=== PATIENT | female | born 1980 | race Caucasian/White ===

== ENCOUNTER 2018-09-22 10:13 | Inpatient (IN) | payer OTHER ==
[2018-09-22 10:35] VITALS: BMI 20.7
--- NOTE | 2018-09-22 11:19 | HP ---
CIWA Score Nausea/Vomitin Muscle Tremors: 2 Anxiety: 2 Agitation: 2 Paroxysmal Sweats: 1-Minimal Palms Moist Orientation: 0-Oriented Tacttile Disturbances: 1-Very Mild Itch/Numbness Auditory Disturbances: 1-Very Mild Visual Disturbances: 0-None Headache: 2-Mild CIWA-Ar Total Score: 13 - Admission Criteria OASAS Guidelines: Admission for Medically Managed Detox: Requires at least one of the followin. CIWA greater than 12 2. Seizures within the past 24 hours 3. Delirium tremens within the past 24 hours 4. Hallucinations within the past 24 hours 5. Acute intervention needed for co occurring medical disorder 6. Acute intervention needed for co occurring psychiatric disorder 7. Severe withdrawal that cannot be handled at a lower level of care (continued vomiting, continued diarrhea, abnormal vital signs) requiring intravenous medication and/or fluids 8. Patient presents the following: CIWA greater than 12 Admission Criteria Met: Admission criteria met Admission ROS S - HPI Chief Complaint: i need help to stop drinking alcohol and cocaine Allergies/Adverse Reactions: Allergies Allergy/AdvReac Type Severity Reaction Status Date / Time Fish Containing Products Allergy Severe Rash Verified 09/22/18 13:06 theophylline Allergy Severe Swelling Verified 09/22/18 13:06 History of Present Illness: this 38 years old female with alcohol dependence and cocaine dependence,seeking detox,withdrawal symptom,[facility] detox 05/31/16 to 06/04/16 syncope alcohol related asthma nicotine dependence weight loss bipolar disorder ,no med longest period of sobriety 7 years plan for rehab Exam Limitations: No Limitations - Ebola screening Have you traveled outside of the country in the last 21 days: No (N) Have you had contact with anyone from an Ebola affected area: No Have you been sick,other than usual withdrawal symptoms: No Do you have a fever: No - Review of Systems Constitutional: Loss of Appetite, Malaise, Night Sweats, Changes in sleep, Weakness, Unintentional Wgt. Loss EENT: reports: Nose Congestion Respiratory: reports: No Symptoms reported Cardiac: reports: No Symptoms Reported GI: reports: Nausea, Poor Appetite, Indigestion, Abdominal cramping : reports: No Symptoms Reported Musculoskeletal: reports: Back Pain, Muscle Pain Integumentary: reports: Dryness Neuro: reports: Headache, Tremors Endocrine: reports: No Symptoms Reported Hematology: reports: No Symptoms Reported Psychiatric: reports: No Sypmtoms Reported, Judgement Intact, Mood/Affect Appropiate, Orientated x3 (bipolar history no med) Patient History - Patient Medical History Hx Anemia: No Hx Asthma: Yes Hx Chronic Obstructive Pulmonary Disease (COPD): No Hx Cancer: Yes (2007 LEAP PROCEDURE 2ND CX [place] ,partial hysterectomy ,radiation) Hx Cardiac Disorders: No Hx Congestive Heart Failure: No Hx Hypertension: No Hx Hypercholesterolemia: No Hx Pacemaker: No HX Cerebrovascular Accident: No Hx Seizures: No Hx Dementia: No Hx Diabetes: No Hx Gastrointestinal Disorders: No Hx Liver Disease: No Hx Genitourinary Disorders: No Hx Sexually Transmitted Disorders: No Hx Renal Disease (ESRD): No Hx Thyroid Disease: No Hx Human Immunodeficiency Virus (HIV): No (negative last in 2015) Hx Hepatitis C: No Hx Depression: Yes Hx Suicide Attempt: No Hx Bipolar Disorder: Yes (no medication) Hx Schizophrenia: No Other Medical History: no suicidal,no homicidal - Patient Surgical History Past Surgical History: Yes Hx Neurologic Surgery: No Hx Cataract Extraction: No Hx Cardiac Surgery: No Hx Lung Surgery: No Hx Breast Surgery: No Hx Breast Biopsy: No Hx Abdominal Surgery: No Hx Appendectomy: No Hx Cholecystectomy: No Hx Genitourinary Surgery: Yes (2006 LEEP; 2007 TUBALIGATION) Hx Section: No Hx Orthopedic Surgery: No Other Surgical History: partial hysterectomy for ca of cervix 2007 Anesthesia Reaction: No - PPD History Previous Implant?: Yes Documented Results: Negative w/o proof Implanted On Prior [facility] Admission?: Yes Date: 06/02/16 Results: 0 mm PPD to be Administered?: Yes - Reproductive History Patient is a Female of Child Bearing Age (11 -55 yrs old): Yes Last Menstrual Period: 10/30/15 Patient : No - Smoking Cessation Smoking history: Current every day smoker Have you smoked in the past 12 months: Yes Aproximately how many cigarettes per day: 40 Cigars Per Day: 0 Hx Chewing Tobacco Use: No Initiated information on smoking cessation: Yes 'Breaking Loose' booklet given: 09/22/18 - Substance & Tx. History Hx Alcohol Use: Yes Hx Substance Use: Yes Substance Use Type: Alcohol Hx Substance Use Treatment: Yes ([facility] 05/31/16 to 06/04/16) - Substances Abused Alcohol Route: Oral Frequency: Daily Amount used: 1pint of vodka/6 packs of 25 ozs of beer Age of first use: 7 Date of Last Use: 09/22/18 Cocaine Route: Smoking Frequency: Daily Amount used: 80$ Age of first use: 26 Date of Last Use: 09/20/18 Family Disease History - Family Disease History Family Disease History: Diabetes: Father (alcohol and drugs ), Heart Disease: Father, CA: Father, Mother (alcohol and drugs ), Respiratory: Father, Other: Brother (alcohol dependence) Admission Physical Exam [facility] - Vital Signs Vital Signs: Vital Signs - 24 hr 09/22/18 10:33 Temperature 97.6 F Pulse Rate 78 Respiratory 18 Rate Blood Pressure 103/47 L - Physical General Appearance: Yes: Moderate Distress, Tremorous, Irritable, Sweating, Anxious HEENTM: Yes: Normocephalic, ERNST, Pharynx Normal Respiratory: Yes: Lungs Clear, Normal Breath Sounds, No Respiratory Distress, Other (history of asthma) Neck: Yes: Within Normal Limits, Supple, Trachea in good position Breast: Yes: Breast Exam Deferred Cardiology: Yes: Within Normal Limits, Regular Rhythm, Regular Rate, S1, S2 Abdominal: Yes: Within Normal Limits, Normal Bowel Sounds, Non Tender, Flat, Soft, Surgical Scar Genitourinary: Yes: Within Normal Limits, Other (s/p partial hysterectomy and radiation for ca of cervix in 2007 follow up by vibration analyst) Back: Yes: Muscle Spasm Extremities: Yes: Within Normal Limits, Normal Range of Motion, Tremors Neurological: Yes: confectionery maker II-XII NML intact, Fully Oriented, Alert, Motor Strength 5/5 Integumentary: Yes: Dry - Diagnostic (1) Alcohol dependence with uncomplicated withdrawal Current Visit: No Status: Chronic (2) Crack cocaine use Current Visit: No Status: Chronic (3) Nicotine dependence Current Visit: No Status: Chronic Qualifiers: Nicotine product type: cigarettes Substance use status: uncomplicated Qualified Code(s): F17.210 - Nicotine dependence, cigarettes, uncomplicated (4) Weight loss Current Visit: Yes Status: Acute (5) Bipolar disorder Current Visit: Yes Status: Acute (6) No natural teeth Current Visit: Yes Status: Acute (7) History of malignant neoplasm of cervix Current Visit: Yes Status: Acute Cleared for Admission S - Detox or Rehab [facility] Level of Care: Medically Managed Detox Regimen/Protocol: Librium BHS Breath Alcohol Content Breath Alcohol Content: 0.100 Urine Pregancy Test - Result Urine Test Results: Negative- NO Line Present Urine Drug Screen - Results Drug Screen Negative: No
[2018-09-22] MEDS ORDERED: MAG HYDROX/AL HYDROX/SIMETH 30 ML UNIT-DOSE CUP PO PRN (11:34)
[2018-09-22] MEDS ORDERED: MAGNESIUM CITRATE 300 ML BOTTLE PO PRN (11:34)
[2018-09-22] MEDS ORDERED: LOPERAMIDE HCL 2 MG CAPSULE PO PRN (11:34)
[2018-09-22] MEDS ORDERED: guaiFENesin/D-METHORPHAN HB 10 ML UNIT-DOSE CUPS PO PRN (11:34)
[2018-09-22] MEDS ORDERED: chlordiazePOXIDE HCL 25 MG CAPSULE PO PRN (11:34)
[2018-09-22] MEDS ORDERED: ACETAMINOPHEN 325 MG TABLET (FP) PO PRN (11:34)
[2018-09-22] MEDS ORDERED: P-EPHED 60MG/TRIPROLIDI 2.5MG TABLET PO PRN (11:34)
[2018-09-22] MEDS ORDERED: MAGNESIUM HYDROX 2400MG/30ML ORAL SUSPENSION 30 ML CUP PO PRN (11:34)
[2018-09-22] MEDS ORDERED: MENTHOL/PHENOL 1 EACH UD MM PRN (11:34)
[2018-09-22] MEDS ORDERED: ALBUTEROL SO4 8 GM HFA INHALER IH PRN (13:54)
[2018-09-22] MEDS: NICOTINE 21 MG/24 HOURS TOPICAL PATCH TD SCH (14:07)
[2018-09-22] MEDS: IBUPROFEN 400 MG TABLET (FP) PO PRN ×2 (15:01→22:44)
[2018-09-22] MEDS: chlordiazePOXIDE HCL 25 MG CAPSULE PO SCH ×2 (17:10→22:45)
[2018-09-22] MEDS: THIAMINE HCL 100 MG TABLET (FP) PO SCH (22:44)
[2018-09-22] MEDS: MELATONIN 5 MG TABLETS PO PRN (22:44)
[2018-09-22] MEDS: NICOTINE POLACRILEX 2 MG GUM BUC PRN (22:47)
[2018-09-22 22:48] LABS: URINE APPEARANCE SLCLOUDY; URINE BILIRUBIN NEGATIVE (<2.0 mg/dL); URINE COLOR LTYELLOW; URINE GLUCOSE (UA) NEGATIVE (NEGATIVE); URINE KETONE NEGATIVE (NEGATIVE); URINE LEUK ESTERASE NEGATIVE (NEGATIVE); URINE NITRITE NEGATIVE (NEGATIVE); URINE PROTEIN NEGATIVE (NEGATIVE); URINE UROBILINOGEN NEGATIVE mg/dL (0.2-1.0)
[2018-09-23] MEDS: chlordiazePOXIDE HCL 25 MG CAPSULE PO SCH ×4 (06:01→22:16)
[2018-09-23 10:28] LABS: HEMATOCRIT 35.6 % (32.4-45.2); HEMOGLOBIN 11.4 GM/dL (10.7-15.3); MCH 30.3 pg (25.7-33.7); MEAN CELL VOLUME 94.5 fl (80-96); MEAN PLT VOLUME 10.6 fl (7.5-11.1); PLATELET COUNT 159 K/MM3 (134-434); RBC 3.77 M/mm3 (3.60-5.2); RDW 14.8 % (11.6-15.6); WHITE BLOOD COUNT 6.1 K/mm3 (4.0-10.0)
[2018-09-23] MEDS: NICOTINE 21 MG/24 HOURS TOPICAL PATCH TD SCH (10:34)
[2018-09-23] MEDS: PRENATAL VITAMINS W/ FOLIC ACID TABLET (FP) PO SCH (10:34)
[2018-09-23] MEDS: NICOTINE POLACRILEX 2 MG GUM BUC PRN (10:36)
[2018-09-23 10:44] LABS: ALK PHOS 61 U/L (45-117); ANION GAP 8 MMOL/L (8-16); BILIRUBIN,TOTAL 0.2 mg/dL (0.2-1); BLOOD UREA NITROGEN 19 mg/dL (7-18); CALCIUM 8.1 mg/dL (8.5-10.1); CHLORIDE 110 mmol/L (98-107); CO2 24 mmol/L (21-32); CREATININE 0.6 mg/dL (0.55-1.3); GLUCOSE,RANDOM 91 mg/dL (74-106); POTASSIUM 4.1 mmol/L (3.5-5.1); SGOT/AST 10 U/L (15-37); SGPT/ALT 13 U/L (13-61); SODIUM 141 mmol/L (136-145); TOT PROT 5.6 g/dl (6.4-8.2)
--- NOTE | 2018-09-23 11:27 | PN ---
S CIWA - CIWA Score Nausea/Vomitin-Mild Nausea/No Vomiting Muscle Tremors: 3 Anxiety: 2 Agitation: 2 Paroxysmal Sweats: 1-Minimal Palms Moist Orientation: 1-Uncertain about Date Tacttile Disturbances: 1-Very Mild Itch/Numbness Auditory Disturbances: 1-Very Mild Visual Disturbances: 0-None Headache: 1-Very Mild CIWA-Ar Total Score: 13 BHS Progress Note (SOAP) Subjective: sweat tremor diarrhea anxiety restlessness Objective: 09/23/18 11:26 Vital Signs Temperature 98.2 F 09/23/18 09:38 Pulse Rate 87 09/23/18 09:38 Respiratory Rate 16 09/23/18 09:38 Blood Pressure 102/61 09/23/18 09:38 O2 Sat by Pulse Oximetry (%) Laboratory Last Values WBC 6.1 K/mm3 (4.0-10.0) 09/23/18 07:30 RBC 3.77 M/mm3 (3.60-5.2) 09/23/18 07:30 Hgb 11.4 GM/dL (10.7-15.3) 09/23/18 07:30 Hct 35.6 % (32.4-45.2) 09/23/18 07:30 MCV 94.5 fl (80-96) 09/23/18 07:30 MCH 30.3 pg (25.7-33.7) 09/23/18 07:30 MCHC 32.0 g/dl (32.0-36.0) 09/23/18 07:30 RDW 14.8 % (11.6-15.6) 09/23/18 07:30 Plt Count 159 K/MM3 (134-434) 09/23/18 07:30 MPV 10.6 fl (7.5-11.1) 09/23/18 07:30 Sodium 141 mmol/L (136-145) 09/23/18 07:30 Potassium 4.1 mmol/L (3.5-5.1) 09/23/18 07:30 Chloride 110 mmol/L (98-107) H 09/23/18 07:30 Carbon Dioxide 24 mmol/L (21-32) 09/23/18 07:30 Anion Gap 8 MMOL/L (8-16) 09/23/18 07:30 BUN 19 mg/dL (7-18) H 09/23/18 07:30 Creatinine 0.6 mg/dL (0.55-1.3) 09/23/18 07:30 Creat Clearance w eGFR > 60 (>60) 09/23/18 07:30 Random Glucose 91 mg/dL (74-106) 09/23/18 07:30 Calcium 8.1 mg/dL (8.5-10.1) L 09/23/18 07:30 Total Bilirubin 0.2 mg/dL (0.2-1) 09/23/18 07:30 AST 10 U/L (15-37) L 09/23/18 07:30 ALT 13 U/L (13-61) 09/23/18 07:30 Alkaline Phosphatase 61 U/L (45-117) 09/23/18 07:30 Total Protein 5.6 g/dl (6.4-8.2) L 09/23/18 07:30 Albumin 3.0 g/dl (3.4-5.0) L 09/23/18 07:30 Urine Color Ltyellow 09/22/18 22:30 Urine Appearance Slcloudy 09/22/18 22:30 Urine pH 6.0 (5.0-8.0) 09/22/18 22:30 Ur Specific [place] 1.005 (1.010-1.035) L 09/22/18 22:30 Urine Protein Negative (NEGATIVE) 09/22/18 22:30 Urine Glucose (UA) Negative (NEGATIVE) 09/22/18 22:30 Urine Ketones Negative (NEGATIVE) 09/22/18 22:30 Urine Blood Negative (NEGATIVE) 09/22/18 22:30 Urine Nitrite Negative (NEGATIVE) 09/22/18 22:30 Urine Bilirubin Negative (<2.0 mg/dL) 09/22/18 22:30 Urine Urobilinogen Negative mg/dL (0.2-1.0) 09/22/18 22:30 Ur Leukocyte Esterase Negative (NEGATIVE) 09/22/18 22:30 RPR Titer Nonreactive (NONREACTIVE) 09/23/18 07:30 lab noted Assessment: 09/23/18 11:26 withdrawal sx Plan: continue detox
[2018-09-23] MEDS ORDERED: FLU VACCINE QUAD 60 MCG/0.5 ML (MDV 18-19) IM ONE (12:00)
[2018-09-23] MEDS: hydrOXYzine PAMOATE 25 MG CAPSULE (FP) PO PRN ×2 (12:46→22:16)
--- NOTE | 2018-09-23 13:47 | EKG ---
Test Reason : Blood Pressure : / mmHG Vent. Rate : 078 BPM Atrial Rate : 078 BPM P-R Int : 122 ms QRS Dur : 084 ms QT Int : 390 ms P-R-T Axes : 078 084 072 degrees QTc Int : 444 ms SINUS RHYTHM WITH PREMATURE ATRIAL COMPLEXES OTHERWISE NORMAL ECG NO PREVIOUS ECGS AVAILABLE Confirmed by AMISH WALKER MD ([id number]) on 09/23/2018 1:46:44 PM Referred By: Confirmed By:AMISH WALKER MD
[2018-09-23] MEDS: MELATONIN 5 MG TABLETS PO PRN (22:16)
[2018-09-23] MEDS: THIAMINE HCL 100 MG TABLET (FP) PO SCH (22:16)
[2018-09-24] MEDS: chlordiazePOXIDE HCL 25 MG CAPSULE PO SCH ×2 (05:46→10:52)
[2018-09-24] MEDS: PRENATAL VITAMINS W/ FOLIC ACID TABLET (FP) PO SCH (10:53)
[2018-09-24] MEDS: NICOTINE 21 MG/24 HOURS TOPICAL PATCH TD SCH (10:54)
[2018-09-24] MEDS: NICOTINE POLACRILEX 2 MG GUM BUC PRN (10:55)
--- NOTE | 2018-09-24 12:07 | PN ---
S CIWA - CIWA Score Nausea/Vomitin-Mild Nausea/No Vomiting Muscle Tremors: 4-Moderate,w/Arms Extend Anxiety: 3 Agitation: 3 Paroxysmal Sweats: 3 Orientation: 0-Oriented Tacttile Disturbances: 0-None Auditory Disturbances: 0-None Visual Disturbances: 0-None Headache: 0-None Present CIWA-Ar Total Score: 14 S Progress Note (SOAP) Subjective: nausea sweats shakes body aches nausea headache Objective: 09/24/18 12:07 Vital Signs Temperature 98.2 F 09/24/18 09:17 Pulse Rate 84 09/24/18 09:17 Respiratory Rate 18 09/24/18 09:17 Blood Pressure 111/60 09/24/18 09:17 O2 Sat by Pulse Oximetry (%) Laboratory Tests 09/22/18 09/23/18 09/23/18 22:30 07:30 07:30 WBC 6.1 RBC 3.77 Hgb 11.4 Hct 35.6 MCV 94.5 MCH 30.3 MCHC 32.0 RDW 14.8 Plt Count 159 MPV 10.6 Sodium 141 Potassium 4.1 Chloride 110 H Carbon Dioxide 24 Anion Gap 8 BUN 19 H Creatinine 0.6 Creat Clearance w eGFR > 60 Random Glucose 91 Calcium 8.1 L Total Bilirubin 0.2 AST 10 L ALT 13 Alkaline Phosphatase 61 Total Protein 5.6 L Albumin 3.0 L Urine Color Ltyellow Urine Appearance Slcloudy Urine pH 6.0 Ur Specific [place] 1.005 L Urine Protein Negative Urine Glucose (UA) Negative Urine Ketones Negative Urine Blood Negative Urine Nitrite Negative Urine Bilirubin Negative Urine Urobilinogen Negative Ur Leukocyte Esterase Negative RPR Titer HIV 1&2 Antibody Screen HIV P24 Antigen 09/23/18 09/23/18 07:30 07:30 WBC RBC Hgb Hct MCV MCH MCHC RDW Plt Count MPV Sodium Potassium Chloride Carbon Dioxide Anion Gap BUN Creatinine Creat Clearance w eGFR Random Glucose Calcium Total Bilirubin AST ALT Alkaline Phosphatase Total Protein Albumin Urine Color Urine Appearance Urine pH Ur Specific [place] Urine Protein Urine Glucose (UA) Urine Ketones Urine Blood Urine Nitrite Urine Bilirubin Urine Urobilinogen Ur Leukocyte Esterase RPR Titer Nonreactive HIV 1&2 Antibody Screen Negative HIV P24 Antigen Negative aaox3 lying in bed no acute distress Assessment: 09/24/18 12:26 withdrawal sx Plan: continue detox increase fluids zofran sl prn
[2018-09-24] MEDS: hydrOXYzine PAMOATE 25 MG CAPSULE (FP) PO PRN (13:28)
[2018-09-24] MEDS: chlordiazePOXIDE 5 MG CAPSULE PO SCH ×2 (17:49→22:29)
[2018-09-24] MEDS: THIAMINE HCL 100 MG TABLET (FP) PO SCH (22:28)
[2018-09-24] MEDS: MELATONIN 5 MG TABLETS PO PRN (22:29)
[2018-09-25] MEDS: hydrOXYzine PAMOATE 25 MG CAPSULE (FP) PO PRN (03:07)
[2018-09-25] MEDS: chlordiazePOXIDE 5 MG CAPSULE PO SCH ×2 (05:43→10:35)
[2018-09-25] MEDS: IBUPROFEN 400 MG TABLET (FP) PO PRN (05:45)
[2018-09-25] MEDS: PRENATAL VITAMINS W/ FOLIC ACID TABLET (FP) PO SCH (10:35)
[2018-09-25] MEDS: NICOTINE 21 MG/24 HOURS TOPICAL PATCH TD SCH (10:36)
[2018-09-25] MEDS: NICOTINE POLACRILEX 2 MG GUM BUC PRN (10:38)
--- NOTE | 2018-09-25 11:49 | PN ---
BHS Progress Note (SOAP) Subjective: feeling better little sweats Objective: 09/25/18 11:48 Vital Signs Temperature 98.2 F 09/25/18 09:37 Pulse Rate 92 H 09/25/18 09:37 Respiratory Rate 18 09/25/18 09:37 Blood Pressure 108/61 09/25/18 09:37 O2 Sat by Pulse Oximetry (%) aaox3 ambulating no acute distress Assessment: 09/25/18 11:49 withdrawal sx Plan: continue detox increase fluids d/c in am
[2018-09-25] MEDS: chlordiazePOXIDE HCL 10 MG CAPSULE PO SCH ×2 (17:23→22:20)
[2018-09-25] MEDS: MELATONIN 5 MG TABLETS PO PRN (22:20)
[2018-09-25] MEDS: THIAMINE HCL 100 MG TABLET (FP) PO SCH (22:20)
[2018-09-26] MEDS: chlordiazePOXIDE HCL 10 MG CAPSULE PO SCH (05:53)
[2018-09-26] MEDS: NICOTINE POLACRILEX 2 MG GUM BUC PRN (05:54)
[2018-09-26 06:24] VITALS: BP 98/61; PULSE 70; TEMP 97.7
--- NOTE | 2018-09-26 09:28 | DS ---
[facility] Detox Discharge Summary Admission Date: 09/22/18 - History Present History: Alcohol Dependence, Cocaine Dependence, Opioid Dependence, Sedative Dependence - Physical Exam Results Vital Signs: Vital Signs Temperature 97.7 F 09/26/18 06:00 Pulse Rate 70 09/26/18 06:00 Respiratory Rate 16 09/26/18 06:00 Blood Pressure 98/61 09/26/18 06:00 O2 Sat by Pulse Oximetry (%) - Treatment Hospital Course: Detox Protocol Followed, Detoxed Safely, Responded well, Discharged Condition Good, Rehab Referral Accepted - Medication Discharge Medications: Ambulatory Orders Albuterol Sulfate Inhaler - [Ventolin HFA Inhaler -] 2 inh IH Q6H PRN #1 inhaler 06/04/16 - Diagnosis (1) Bipolar disorder Status: Acute (2) History of malignant neoplasm of cervix Status: Resolved (3) No natural teeth Status: Chronic (4) Weight loss Status: Acute (5) Alcohol dependence with uncomplicated withdrawal Status: Chronic (6) Crack cocaine use Status: Chronic (7) Nicotine dependence Status: Chronic Qualifiers: Nicotine product type: cigarettes Substance use status: uncomplicated Qualified Code(s): F17.210 - Nicotine dependence, cigarettes, uncomplicated (8) Schizoaffective disorder Status: Chronic Qualifiers: Schizoaffective disorder type: unspecified Qualified Code(s): F25.9 - Schizoaffective disorder, unspecified - AMA Did Patient Leave Against Medical Advice: No (going home)
== END 2018-09-26 08:47 | disposition home or self-care (01) | DRG 773 ==
LOC: YASAS 10:13 → Y6N 11:54
PROVIDERS: ADMIT Neuromusculoskeletal Medicine & OMM; ATTEND Neuromusculoskeletal Medicine & OMM
PROC: HZ2ZZZZ Detoxification Services for Substance Abuse Treatment (ICD-10-PCS; principal; 2018-09-22)
DX: F10.230 Alcohol dependence with withdrawal, uncomplicated (principal); F14.90 Cocaine use, unspecified, uncomplicated; F11.20 Opioid dependence, uncomplicated; F17.210 Nicotine dependence, cigarettes, uncomplicated; F31.9 Bipolar disorder, unspecified; F25.9 Schizoaffective disorder, unspecified; K08.109 Complete loss of teeth, unspecified cause, unspecified class; Z85.41 Personal history of malignant neoplasm of cervix uteri; Z90.710 Acquired absence of both cervix and uterus; Z92.3 Personal history of irradiation; Z91.013 Allergy to seafood
CPT/HCPCS: 36415; 80053; 81003; 85027; 86593; 87389; 90688; 93005; 93010; G0008

== ENCOUNTER 2019-04-28 13:02 | Inpatient (IN) | payer OTHER ==
[2019-04-28 15:15] VITALS: BMI 22.4
--- NOTE | 2019-04-28 18:50 | HP ---
COWS - Scale Resting Pulse: 0= [place] 80 or Below Sweatin=Flushed/Facial Moisture Restless Observation: 0= Sits Still Pupil Size: 1= Pupils >than Normal Bone or Joint Aches: 4=Acute Joint/Muscle Pain Runny Nose/ Eye Tearin= Runny Nose/Eyes GI Upset > 30mins: 3= Vomiting/Diarrhea (vomiting x 2, diarrhea x 2) Tremor Observation: 4= Gross Tremor/Twitching Yawning Observation: 1= 1-2x During Session Anxiety or Irritability: 2=Irritable/Anxious Goose Flesh Skin: 0=Smooth Skin COWS Score: 19 CIWA Score Nausea/Vomitin Muscle Tremors: 4-Moderate,w/Arms Extend Anxiety: 4-Mod. Anxious/Guarded Agitation: 4-Moderately Restless Paroxysmal Sweats: 2 Orientation: 0-Oriented Tacttile Disturbances: 0-None Auditory Disturbances: 0-None Visual Disturbances: 0-None Headache: 1-Very Mild CIWA-Ar Total Score: 18 - Admission Criteria OASAS Guidelines: Admission for Medically Managed Detox: Requires at least one of the followin. CIWA greater than 12 2. Seizures within the past 24 hours 3. Delirium tremens within the past 24 hours 4. Hallucinations within the past 24 hours 5. Acute intervention needed for co occurring medical disorder 6. Acute intervention needed for co occurring psychiatric disorder 7. Severe withdrawal that cannot be handled at a lower level of care (continued vomiting, continued diarrhea, abnormal vital signs) requiring intravenous medication and/or fluids 8. Admission ROS [facility] Chief Complaint: Heroin and alcohol withdrawal symptoms Allergies/Adverse Reactions: Allergies Allergy/AdvReac Type Severity Reaction Status Date / Time Fish Containing Products Allergy Severe Rash Verified 04/28/19 15:06 theophylline Allergy Severe Swelling Verified 04/28/19 15:06 History of Present Illness: 38 years old female with 12 years of heroin dependence and 31 years of alcohol dependence is seeking admission to detox. Patient has been to multiple detox, last at [facility] and reports 7 years of sobriety. She reports history of asthma, Cervical cancer and depression. Denies suicidal ideation at this time. - Ebola screening Have you traveled outside of the country in the last 21 days: No (N) Have you had contact with anyone from an Ebola affected area: No Do you have a fever: No - Review of Systems Constitutional: Chills, Loss of Appetite, Malaise, Night Sweats, Changes in sleep EENT: reports: No Symptoms Reported Respiratory: reports: No Symptoms reported Cardiac: reports: No Symptoms Reported GI: reports: No Symptoms Reported, Diarrhea, Poor Appetite, Poor Fluid Intake, Vomiting, Abdominal cramping : reports: No Symptoms Reported Musculoskeletal: reports: No Symptoms Reported, Joint Pain, Muscle Pain, Muscle Weakness Integumentary: reports: Dryness, Flushing Neuro: reports: Tremors Endocrine: reports: No Symptoms Reported Hematology: reports: No Symptoms Reported Psychiatric: reports: Orientated x3, Anxious Other Systems: Reviewed and Negative Patient History - Patient Medical History Hx Anemia: No Hx Asthma: Yes (Albuterol) Hx Chronic Obstructive Pulmonary Disease (COPD): No Hx Cancer: Yes (2007 LEAP PROCEDURE 2ND CX CA ,partial hysterectomy ,radiation) Hx Cardiac Disorders: No Hx Congestive Heart Failure: No Hx Hypertension: No Hx Hypercholesterolemia: No Hx Pacemaker: No HX Cerebrovascular Accident: No Hx Seizures: No Hx Dementia: No Hx Diabetes: No Hx Gastrointestinal Disorders: No Hx Liver Disease: No Hx Genitourinary Disorders: No Hx Sexually Transmitted Disorders: No Hx Renal Disease (ESRD): No Hx Thyroid Disease: No Hx Human Immunodeficiency Virus (HIV): No (Negative April 01, 2019) Hx Hepatitis C: No Hx Depression: Yes (Not on medication) Hx Suicide Attempt: No Hx Bipolar Disorder: Yes (Not medication) Hx Schizophrenia: No - Patient Surgical History Past Surgical History: Yes Hx Neurologic Surgery: No Hx Cataract Extraction: No Hx Cardiac Surgery: No Hx Lung Surgery: No Hx Breast Surgery: No Hx Breast Biopsy: No Hx Abdominal Surgery: No Hx Appendectomy: No Hx Cholecystectomy: No Hx Genitourinary Surgery: Yes (2006 LEEP; 2007 TUBALIGATION) Hx Section: No Hx Orthopedic Surgery: No Other Surgical History: partial hysterectomy for ca of cervix 2007 Anesthesia Reaction: No - PPD History Previous Implant?: Yes Documented Results: Negative w/proof Implanted On Prior [facility] Admission?: Yes Date: 09/24/18 Results: 0 mm PPD to be Administered?: No - Reproductive History Patient is a Female of Child Bearing Age (11 -55 yrs old): Yes Last Menstrual Period: 03/28/19 Patient : No - Smoking Cessation Smoking history: Current every day smoker Have you smoked in the past 12 months: Yes Aproximately how many cigarettes per day: 40 Cigars Per Day: 0 Hx Chewing Tobacco Use: No Initiated information on smoking cessation: Yes 'Breaking Loose' booklet given: 04/28/19 - Substance & Tx. History Hx Alcohol Use: Yes Hx Substance Use: Yes Substance Use Type: Alcohol, Cocaine, Heroin, Marijuana Hx Substance Use Treatment: Yes ([facility]) - Substances abused Alcohol Substance route: Oral Frequency: Daily Amount used: vodka- 2pts/ 3 (40oz cans beers Age of first use: 7 Date of last use: 04/28/19 Heroin Substance route: Injection Frequency: Daily Amount used: 15 bags Age of first use: 26 Date of last use: 04/28/19 Cocaine Substance route: Injection Frequency: 3-6 times per week Amount used: 6 bags Age of first use: 26 Date of last use: 04/27/19 Crack Substance route: Smoking Frequency: 3-6 times per week Amount used: $60 Age of first use: 26 Date of last use: 04/28/19 Family Disease History - Family Disease History Family Disease History: Diabetes: Father (alcohol and drugs ), Heart Disease: Father, CA: Father, Mother (alcohol and drugs ), Respiratory: Father, Other: Brother (alcohol dependence) Admission Physical Exam [facility] - Vital Signs Vital Signs: Vital Signs - 24 hr 04/28/19 04/28/19 15:05 17:46 Temperature 98.2 F 98.2 F Pulse Rate 67 67 Respiratory 18 18 Rate Blood Pressure 100/55 L 100/55 L - Physical General Appearance: Yes: Moderate Distress, Tremorous, Anxious HEENTM: Yes: Within Normal Limits Respiratory: Yes: Lungs Clear, Normal Breath Sounds, No Respiratory Distress Neck: Yes: Supple Breast: Yes: Breast Exam Deferred Cardiology: Yes: Regular Rhythm, Regular Rate Abdominal: Yes: Normal Bowel Sounds, Soft Genitourinary: Yes: Within Normal Limits Back: Yes: Normal Inspection Musculoskeletal: Yes: Within Normal Limits, Muscle Pain, Muscle weakness Extremities: Yes: Tremors Neurological: Yes: Within Normal Limits, Alert Integumentary: Yes: Warm Lymphatic: Yes: Within Normal Limits - Diagnostic (1) Asthma Current Visit: Yes Status: Chronic Qualifiers: Asthma severity: moderate Asthma complication type: uncomplicated (2) Depression Current Visit: Yes Status: Chronic Qualifiers: Depression Type: unspecified Qualified Code(s): F32.9 - Major depressive disorder, single episode, unspecified (3) Alcohol dependence with uncomplicated withdrawal Current Visit: Yes Status: Acute (4) Nicotine dependence Current Visit: Yes Status: Chronic Qualifiers: Nicotine product type: cigarettes Substance use status: uncomplicated Qualified Code(s): F17.210 - Nicotine dependence, cigarettes, uncomplicated (5) History of malignant neoplasm of cervix Current Visit: No Status: Resolved Cleared for Admission [facility] - Detox or Rehab [facility] Level of Care: Medically Managed Detox Regimen/Protocol: Methadone/Librium Breathalyzer - Breathalyzer Breathalyzer: 0 Urine Drug Screen - Test Device Lot number: [id number] Expiration date: 12/27/20 - Control Is test valid?: Yes - Results Urine drug screen results: THC-Marijuana, ONEYDA-Cocaine, MOP-Opiates Inpatient Rehab Admission - Rehab Decision to Admit Inpatient rehab admission?: No
[2019-04-28] MEDS ORDERED: cloNIDine HCL 0.1 MG TABLET PO PRN (19:02)
[2019-04-28] MEDS ORDERED: ACETAMINOPHEN 325 MG TABLET (FP) PO PRN ×2 (19:02)
[2019-04-28] MEDS ORDERED: MAGNESIUM HYDROX 2400MG/30ML ORAL SUSPENSION 30 ML CUP PO PRN (19:02)
[2019-04-28] MEDS ORDERED: hydrOXYzine PAMOATE 25 MG CAPSULE (FP) PO PRN (19:02)
[2019-04-28] MEDS ORDERED: METHOCARBAMOL 500 MG TABLET PO PRN (19:02)
[2019-04-28] MEDS ORDERED: MAGNESIUM CITRATE 300 ML BOTTLE PO PRN (19:02)
[2019-04-28] MEDS ORDERED: MENTHOL/PHENOL 1 EACH UD MM PRN (19:02)
[2019-04-28] MEDS ORDERED: MAG HYDROX/AL HYDROX/SIMETH 30 ML UNIT-DOSE CUP PO PRN (19:02)
[2019-04-28] MEDS ORDERED: BISMUTH SUBSALICYLATE 524 MG/30 ML UD PO PRN (19:02)
[2019-04-28] MEDS ORDERED: ALBUTEROL SO4 8 GM HFA INHALER IH PRN (19:02)
[2019-04-28] MEDS ORDERED: IBUPROFEN 400 MG TABLET (FP) PO PRN (19:02)
[2019-04-28] MEDS ORDERED: chlordiazePOXIDE HCL 25 MG CAPSULE PO PRN (19:02)
[2019-04-28] MEDS ORDERED: MELATONIN 5 MG TABLETS PO PRN (19:02)
[2019-04-28] MEDS ORDERED: TRIMETHOBENZAMIDE HCL 200MG/2ML INJ IM ONE (20:30)
--- NOTE | 2019-04-28 20:37 | PN ---
S Progress Note Note: Patient vomited x 1 Vital Signs Temperature 98.0 F 04/28/19 19:58 Pulse Rate 53 L 04/28/19 19:58 Respiratory Rate 16 04/28/19 19:58 Blood Pressure 110/63 04/28/19 19:58 O2 Sat by Pulse Oximetry (%) Action: Tigan 200mg intramuscular ordered
[2019-04-28] MEDS ORDERED: THIAMINE HCL 100 MG TABLET (FP) PO SCH (22:00)
[2019-04-28] MEDS: chlordiazePOXIDE HCL 25 MG CAPSULE PO SCH (22:46)
[2019-04-28] MEDS ORDERED: METHADONE HCL 10 MG TABLET (FOR DETOX USE ONLY) PO ONE (23:00)
[2019-04-29] MEDS: chlordiazePOXIDE HCL 25 MG CAPSULE PO SCH ×2 (05:31→10:38)
[2019-04-29] MEDS: NICOTINE POLACRILEX 4 MG GUM BUC PRN ×2 (05:53→10:40)
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
[2019-04-29 09:25] VITALS: BP 99/58; PULSE 66; TEMP 98.5
[2019-04-29] MEDS ORDERED: METHADONE HCL 10 MG TABLET (FOR DETOX USE ONLY) PO ONE (10:00)
[2019-04-29] MEDS ORDERED: PRENATAL VITAMINS W/ FOLIC ACID TABLET (FP) PO SCH (10:00)
[2019-04-29 10:29] LABS: HEMATOCRIT 30.1 % (32.4-45.2); HEMOGLOBIN 9.8 GM/dL (10.7-15.3); MCH 30.4 pg (25.7-33.7); MCHC 32.4 g/dl (32.0-36.0); MEAN CELL VOLUME 93.9 fl (80-96); MEAN PLT VOLUME 11.1 fl (7.5-11.1); PLATELET COUNT 149 K/MM3 (134-434); RBC 3.21 M/mm3 (3.60-5.2); RDW 14.7 % (11.6-15.6); WHITE BLOOD COUNT 5.5 K/mm3 (4.0-10.0)
[2019-04-29 10:56] LABS: BILIRUBIN,TOTAL 0.2 mg/dL (0.2-1); BLOOD UREA NITROGEN 9.6 mg/dL (7-18); CALCIUM 8.3 mg/dL (8.5-10.1); CREATININE 0.8 mg/dL (0.55-1.3); POTASSIUM 3.9 mmol/L (3.5-5.1); TOT PROT 5.6 g/dl (6.4-8.2)
--- NOTE | 2019-04-29 16:46 | EKG ---
Test Reason : Blood Pressure : / mmHG Vent. Rate : 056 BPM Atrial Rate : 056 BPM P-R Int : 126 ms QRS Dur : 086 ms QT Int : 434 ms P-R-T Axes : 079 081 067 degrees QTc Int : 418 ms SINUS BRADYCARDIA WITH SINUS ARRHYTHMIA POSSIBLE LEFT ATRIAL ENLARGEMENT BORDERLINE ECG WHEN COMPARED WITH ECG OF 22-SEP-2018 14:47, PREMATURE ATRIAL COMPLEXES ARE NO LONGER PRESENT Confirmed by DIDI BELLO MD ([id number]) on 04/29/2019 4:46:42 PM Referred By: FATOUMATA COLLINS Confirmed By:DIDI BELLO MD
--- NOTE | 2019-04-29 20:09 | PN ---
[facility] CIWA - CIWA Score Nausea/Vomitin-No Nausea/No Vomiting Muscle Tremors: 2 Anxiety: 4-Mod. Anxious/Guarded Agitation: 2 Paroxysmal Sweats: 2 Orientation: 0-Oriented Tacttile Disturbances: 0-None Auditory Disturbances: 1-Very Mild Visual Disturbances: 2-Mild Sensitivity Headache: 0-None Present CIWA-Ar Total Score: 13 S COWS - Scale Resting Pulse: 0= AL 80 or Below Sweatin= Chills/Flushing Restless Observation: 1= Difficult to Sit Still Pupil Size: 0= Normal to Room Light Bone or Joint Aches: 1= Mild Discomfort Runny Nose/ Eye Tearin= Nasal Congestion GI Upset > 30mins: 0= None Tremor Observation of Outstretched Hands: 2= Slight Tremor Visible Yawning Observation: 1= 1-2x During Session Anxiety or Irritability: 2=Irritable/Anxious Goose Flesh Skin: 3=Piloerection COWS Score: 12 S Progress Note (SOAP) Subjective: Tremors, Sweating, Anxious. Objective: PATIENT A & O X 3, OBSERVED AMBULATING ON UNIT UNASSISTED. IN NO ACUTE DISTRESS. 04/29/19 20:05 Vital Signs Temperature 98.5 F 04/29/19 09:25 Pulse Rate 66 04/29/19 09:25 Respiratory Rate 16 04/29/19 09:25 Blood Pressure 99/58 L 04/29/19 09:25 O2 Sat by Pulse Oximetry (%) Laboratory Tests 04/28/19 04/29/19 04/29/19 17:47 07:00 07:00 WBC 5.5 RBC 3.21 L Hgb 9.8 L Hct 30.1 L D MCV 93.9 MCH 30.4 MCHC 32.4 RDW 14.7 Plt Count 149 MPV 11.1 Sodium 142 Potassium 3.9 Chloride 110 H Carbon Dioxide 29 Anion Gap 4 L BUN 9.6 Creatinine 0.8 Est GFR (CKD-EPI)AfAm 106.88 Est GFR (CKD-EPI)NonAf 92.22 Random Glucose 124 H Calcium 8.3 L Total Bilirubin 0.2 AST 20 ALT 26 Alkaline Phosphatase 65 Total Protein 5.6 L Albumin 3.0 L POC Urine HCG, Qual Negative RPR Titer 04/29/19 07:00 WBC RBC Hgb Hct MCV MCH MCHC RDW Plt Count MPV Sodium Potassium Chloride Carbon Dioxide Anion Gap BUN Creatinine Est GFR (CKD-EPI)AfAm Est GFR (CKD-EPI)NonAf Random Glucose Calcium Total Bilirubin AST ALT Alkaline Phosphatase Total Protein Albumin POC Urine HCG, Qual RPR Titer Nonreactive LABS NOTED. Assessment: 04/29/19 20:06 WITHDRAWAL SYMPTOMS. ANEMIA. Plan: CONTINUE DETOX. PATIENT WAS SCHEDULED TO RECEIVE DAILY MVI CONTAINING B VITAMINS AND IRON WHILE ADMITTED FOR DETOX. PATIENT REPORTED FAMILY EMERGENCY AND LEFT DETOX UNIT AGAINST MEDICAL ADVICE. PATIENT LEFT DETOX UNIT PRIOR TO TIME IN WHICH ADMISSION LAB RESULTS WERE AVAILABLE FOR VIEWING. SEE FOLLOWING [facility] PROGRESS NOTE.
--- NOTE | 2019-04-29 20:16 | DS ---
[facility] Detox Discharge Summary Admission Date: 04/28/19 Discharge Date: 04/29/19 - History Present History: Alcohol Dependence, Cannabis Dependence, Cocaine Dependence Additional Comments: PATIENT REPORTS THAT SHE CURRENTLY HAS A FAMILY EMERGENCY TO ATTEND TO AND THAT SHE DOES NOT WISH TO REMAIN TO COMPLETE DETOX REGIMEN. RISKS OF LEAVING DETOX UNIT AGAINST MEDICAL ADVICE AND PRIOR TO COMPLETION OF DETOX REGIMEN EXPLAINED TO PATIENT. PATIENT ADVISED TO GO IMMEDIATELY TO NEAREST ER SHOULD ANY INTOLERABLE WITHDRAWAL / DETOX SYMPTOMS DEVELOP AT ANY TIME. PATIENT VERBALIZED UNDERSTANDING OF ALL INFORMATION / RECOMMENDATIONS PRESENTED TO HER PRIOR TO DEPARTURE FROM DETOX UNIT. RESULTS OF DETOX ADMISSION LABORATORY ASSESSMENT NOT AVAILABLE UNTIL AFTER PATIENT HAD ALREADY LEFT DETOX UNIT. [place] [facility] [place] [place] HAS REFILL OF VENTOLIN HFA INHALER WAITING TO BE PICKED UP BY HER WHEN SHE WISHES TO GO DO SO. PATIENT LEFT DETOX UNIT IN STABLE MEDICAL CONDITION. Pertinent Past History: History Of Asthma, History Of Cervical Cancer (Treated With Partial Hysterectomy and Radiation), History Of Depression, History Of Bipolar Disorder , Nicotine Dependence, Post-Traumatic Stress Disorder, Schizoaffective Disorder. - Physical Exam Results Vital Signs: Vital Signs Temperature 98.5 F 04/29/19 09:25 Pulse Rate 66 04/29/19 09:25 Respiratory Rate 16 04/29/19 09:25 Blood Pressure 99/58 L 04/29/19 09:25 O2 Sat by Pulse Oximetry (%) Pertinent Admission Physical Exam Findings: WITHDRAWAL SYMPTOMS. Laboratory Tests 04/28/19 04/29/19 04/29/19 17:47 07:00 07:00 WBC 5.5 RBC 3.21 L Hgb 9.8 L Hct 30.1 L D MCV 93.9 MCH 30.4 MCHC 32.4 RDW 14.7 Plt Count 149 MPV 11.1 Sodium 142 Potassium 3.9 Chloride 110 H Carbon Dioxide 29 Anion Gap 4 L BUN 9.6 Creatinine 0.8 Est GFR (CKD-EPI)AfAm 106.88 Est GFR (CKD-EPI)NonAf 92.22 Random Glucose 124 H Calcium 8.3 L Total Bilirubin 0.2 AST 20 ALT 26 Alkaline Phosphatase 65 Total Protein 5.6 L Albumin 3.0 L POC Urine HCG, Qual Negative RPR Titer 04/29/19 07:00 WBC RBC Hgb Hct MCV MCH MCHC RDW Plt Count MPV Sodium Potassium Chloride Carbon Dioxide Anion Gap BUN Creatinine Est GFR (CKD-EPI)AfAm Est GFR (CKD-EPI)NonAf Random Glucose Calcium Total Bilirubin AST ALT Alkaline Phosphatase Total Protein Albumin POC Urine HCG, Qual RPR Titer Nonreactive LABS NOTED. - Treatment Hospital Course: Detoxed Safely - Medication Discharge Medications: Ambulatory Orders Albuterol Sulfate Inhaler - [Ventolin HFA Inhaler -] 2 inh IH Q6H PRN #1 inhaler 06/04/16 - Diagnosis (1) Anemia Status: Acute Qualifiers: Anemia type: unspecified type Qualified Code(s): D64.9 - Anemia, unspecified (2) Alcohol dependence with uncomplicated withdrawal Status: Acute (3) Nicotine dependence Status: Chronic Qualifiers: Nicotine product type: cigarettes Substance use status: uncomplicated Qualified Code(s): F17.210 - Nicotine dependence, cigarettes, uncomplicated (4) History of malignant neoplasm of cervix Status: Resolved (5) Asthma Status: Chronic Qualifiers: Asthma severity: unspecified severity Asthma persistence: unspecified Asthma complication type: uncomplicated Qualified Code(s): J45.909 - Unspecified asthma, uncomplicated (6) Depression Status: Chronic Qualifiers: Depression Type: unspecified Qualified Code(s): F32.9 - Major depressive disorder, single episode, unspecified (7) Cannabis dependence Status: Acute (8) Cocaine dependence Status: Acute Qualifiers: Substance use status: in withdrawal Qualified Code(s): F14.23 - Cocaine dependence with withdrawal (9) Substance-induced sleep disorder Status: Acute (10) PTSD (post-traumatic stress disorder) Status: Chronic (11) Schizoaffective disorder Status: Chronic Qualifiers: Schizoaffective disorder type: unspecified Qualified Code(s): F25.9 - Schizoaffective disorder, unspecified - AMA Did Patient Leave Against Medical Advice: Yes (PATIENT HAD FEMAILY EMERGENCY AND DID NOT WISH TO REMAIN TO COMPLETE DETOX.)
[2019-04-29] MEDS ORDERED: QUEtiapine FUMARATE 100 MG TABLET (FP) PO SCH (22:00)
[2019-04-29] MEDS ORDERED: chlordiazePOXIDE HCL 25 MG CAPSULE PO SCH (23:00)
[2019-04-30] MEDS ORDERED: METHADONE HCL 10 MG TABLET (FOR DETOX USE ONLY) PO ONE (10:00)
[2019-04-30] MEDS ORDERED: chlordiazePOXIDE HCL 10 MG CAPSULE PO SCH (23:00)
[2019-04-30] MEDS ORDERED: chlordiazePOXIDE HCL 10 MG CAPSULE PO PRN (23:00)
[2019-05-01] MEDS ORDERED: METHADONE HCL 10 MG TABLET (FOR DETOX USE ONLY) PO ONE (10:00)
[2019-05-01] MEDS ORDERED: chlordiazePOXIDE HCL 10 MG CAPSULE PO SCH (23:00)
[2019-05-02] MEDS ORDERED: METHADONE HCL 5 MG TABLET (FOR DETOX USE ONLY) PO ONE (06:00)
== END 2019-04-29 12:14 | disposition left against medical advice (07) | DRG 770 ==
LOC: YASAS 13:02 → Y3N 18:49
PROVIDERS: ADMIT Surgery; ATTEND Surgery
PROC: HZ2ZZZZ Detoxification Services for Substance Abuse Treatment (ICD-10-PCS; principal; 2019-04-28)
DX: F10.230 Alcohol dependence with withdrawal, uncomplicated (principal); F14.20 Cocaine dependence, uncomplicated; F12.20 Cannabis dependence, uncomplicated; F17.210 Nicotine dependence, cigarettes, uncomplicated; F43.10 Post-traumatic stress disorder, unspecified; F25.9 Schizoaffective disorder, unspecified; F19.282 Other psychoactive substance dependence with psychoactive substance-induced sleep disorder; F32.9 Major depressive disorder, single episode, unspecified; J45.909 Unspecified asthma, uncomplicated; D64.9 Anemia, unspecified; Z85.41 Personal history of malignant neoplasm of cervix uteri; Z91.013 Allergy to seafood
CPT/HCPCS: 36415; 80053; 81025; 85027; 86593; 93005; 93010; J0735

== ENCOUNTER 2024-12-25 13:14 | Inpatient (IN) | payer OTHER ==
[2024-12-25 14:38] VITALS: BMI 17.8
[2024-12-25] MEDS ORDERED: IBUPROFEN 400 MG TABLET (FP) PO PRN (15:09)
[2024-12-25] MEDS ORDERED: BENZOCAINE/MENTHOL (CHLORASEPTIC ) LOZENGE MM PRN (15:09)
[2024-12-25] MEDS ORDERED: NALOXONE (NARCAN) HCL 4 MG/0.1 ML SPRAY NS PRN (15:09)
[2024-12-25] MEDS ORDERED: MAGNESIUM HYDROX 2400MG/30ML ORAL SUSPENSION 30 ML CUP PO PRN (15:09)
[2024-12-25] MEDS ORDERED: LOPERAMIDE HCL 2 MG CAPSULE PO PRN (15:09)
[2024-12-25] MEDS ORDERED: guaiFENesin 600 MG TABLET.ER (FP) PO PRN (15:09)
[2024-12-25] MEDS ORDERED: POLYETHYLENE GLYCOL (HEALTHYLAX) 3350 17 GM PACKET PO PRN (15:09)
[2024-12-25] MEDS ORDERED: BENZONATATE 200 MG CAPSULE PO PRN (15:09)
[2024-12-25] MEDS: ACAMPROSATE CALCIUM 333 MG TABLET.DR PO SCH (19:10)
[2024-12-25] MEDS: TUBERCULIN PPD 5 TU/0.1ML SYRINGE (IN PATIENT USE ONLY) ID ONE (19:55)
[2024-12-25] MEDS: BUPRENORPHINE/NALOXONE 8 MG/2 MG FILM PACKET SL SCH (22:36)
[2024-12-25] MEDS: THIAMINE 100 MG TABLET PO SCH (22:36)
[2024-12-25] MEDS: MELATONIN 5 MG TABLETS PO SCH (22:36)
[2024-12-25] MEDS: MIRTAZAPINE 15 MG TABLET (FP) PO SCH (22:36)
[2024-12-26] MEDS: NICOTINE POLACRILEX 2 MG GUM BUC PRN (06:49)
[2024-12-26 07:44] LABS: URINE APPEARANCE CLEAR; URINE BILIRUBIN NEGATIVE (NEGATIVE); URINE COLOR YELLOW; URINE GLUCOSE (UA) NEGATIVE (NEGATIVE); URINE KETONE NEGATIVE (NEGATIVE); URINE LEUK ESTERASE NEGATIVE (NEGATIVE); URINE NITRITE NEGATIVE (NEGATIVE); URINE PROTEIN NEGATIVE (NEGATIVE); URINE UROBILINOGEN 0.2 mg/dL (0.2-1.0)
[2024-12-26] MEDS: PRENATAL VITAMINS W/ FOLIC ACID TABLET (FP) PO SCH (09:00)
[2024-12-26] MEDS: NICOTINE 14 MG/24 HOURS TOPICAL PATCH TD SCH (09:00)
[2024-12-26 11:52] LABS: HEMATOCRIT 34.4 % (32.4-45.2); HEMOGLOBIN 10.7 GM/dL (10.7-15.3); MCH 27.4 pg (25.7-33.7); MCHC 31.2 g/dl (32.0-36.0); MEAN CELL VOLUME 87.7 fl (80-96); MEAN PLT VOLUME 8.9 fl (7.5-11.1); PLATELET COUNT 408 10^3/uL (134-434); RBC 3.92 M/mm3 (3.60-5.2); RDW 15.4 % (11.6-15.6); WHITE BLOOD COUNT 6.7 K/mm3 (4.0-10.0)
[2024-12-26 11:58] LABS: POTASSIUM 4.8 mmol/L (3.5-5.1); SODIUM 137 mmol/L (136-145)
[2024-12-26 12:01] LABS: CALCIUM 8.9 mg/dL (8.5-10.1)
[2024-12-26 12:02] LABS: ALBUMIN 3.3 g/dl (3.4-5.0); BLOOD UREA NITROGEN 16.4 mg/dL (7-18); CO2 26 mmol/L (21-32); GLUCOSE,RANDOM 98 mg/dL (74-106)
[2024-12-26 12:05] LABS: CREATININE 0.6 mg/dL (0.55-1.3); SGOT/AST 21 U/L (15-37); SGPT/ALT 40 U/L (13-61)
[2024-12-26 12:06] LABS: BILIRUBIN,TOTAL 0.4 mg/dL (0.2-1); TOT PROT 6.7 g/dl (6.4-8.2)
[2024-12-26 12:07] LABS: ALK PHOS 75 U/L (45-117)
[2024-12-26 13:06] LABS: SYPHILIS W/ RPR CONF NON-REACTIVE (NONREACTIVE)
[2024-12-26] MEDS: IBUPROFEN 600 MG TABLET (FP) PO PRN (13:06)
[2024-12-26 13:37] LABS: HCV DIAGNOSTIC IN-HOUSE W/RFLX NON-REACTIVE (NONREACTIVE)
[2024-12-26 14:22] LABS: ANION GAP 7 mmol/L (4-13); CHLORIDE 104 mmol/L (98-107)
[2024-12-26] MEDS: ACETAMINOPHEN 325 MG TABLET (FP) PO PRN (17:05)
[2024-12-26] MEDS: NICOTINE POLACRILEX 2 MG LOZENGE BC PRN (17:50)
[2024-12-26] MEDS: QUEtiapine FUMARATE 100 MG TABLET (FP) PO SCH (21:22)
[2024-12-27] MEDS: ALBUTEROL SO4 HFA INHALER IH PRN (02:15)
[2024-12-27] MEDS: hydrOXYzine PAMOATE 25 MG CAPSULE (FP) PO PRN (02:16)
[2024-12-27] MEDS: MAG HYDROX/AL HYDROX/SIMETH 30 ML UNIT-DOSE CUP PO PRN (02:18)
[2024-12-27 06:32] VITALS: BP 107/60; PULSE 67; RESP 16; TEMP 98.4
== END 2024-12-27 10:03 | disposition home or self-care (01) | DRG 772 ==
LOC: YASAS 13:14 → Y3NR 19:28
PROVIDERS: ADMIT Psychiatry & Neurology Pain Medicine; ATTEND Psychiatry & Neurology Pain Medicine
PROC: HZ42ZZZ Group Counseling for Substance Abuse Treatment, Cognitive-Behavioral (ICD-10-PCS; principal; 2024-12-25)
DX: F11.20 Opioid dependence, uncomplicated (principal); F10.20 Alcohol dependence, uncomplicated; F13.20 Sedative, hypnotic or anxiolytic dependence, uncomplicated; F14.20 Cocaine dependence, uncomplicated; F12.20 Cannabis dependence, uncomplicated; F17.210 Nicotine dependence, cigarettes, uncomplicated; F31.9 Bipolar disorder, unspecified; F25.9 Schizoaffective disorder, unspecified; F19.282 Other psychoactive substance dependence with psychoactive substance-induced sleep disorder; F43.10 Post-traumatic stress disorder, unspecified; J45.909 Unspecified asthma, uncomplicated; R63.4 Abnormal weight loss; Z68.1 Body mass index [BMI] 19.9 or less, adult; Z62.810 Personal history of physical and sexual abuse in childhood; Z63.8 Other specified problems related to primary support group
CPT/HCPCS: 36415; 80053; 80305; 80307; 81003; 81025; 85027; 86780; 86803; 87811; 93005; 93010